=== PATIENT | female | born 1970 ===

== ENCOUNTER 2024-03-26 12:16 | Outpatient (CLI) | payer OTHER | END 2024-03-26 12:29 | disposition home or self-care (01) | LOC: RAD 12:16 | PROVIDERS: ATTEND Orthopaedic Surgery | DX: M79.672 Pain in left foot (principal) ==

== ENCOUNTER 2024-04-29 10:32 | Outpatient (CLI) | payer OTHER | END 2024-04-29 10:44 | disposition home or self-care (01) | LOC: RAD 10:32 | PROVIDERS: ATTEND Orthopaedic Surgery | DX: S92.352D Displaced fracture of fifth metatarsal bone, left foot, subsequent encounter for fracture with routine healing (principal) ==

== ENCOUNTER 2024-07-10 13:52 | Outpatient (CLI) | payer OTHER | END 2024-07-10 13:53 | disposition home or self-care (01) | LOC: NUCLEAR 13:52 | PROVIDERS: ATTEND Orthopaedic Surgery | DX: M81.0 Age-related osteoporosis without current pathological fracture (principal) ==